=== PATIENT | female | born 1990 | race African-American/Black ===

== ENCOUNTER 2017-09-08 12:24 | Emergency (ER) | payer BC ==
[~2017-09-08] VITALS: Ht 149.9 cm; Wt 62.1 kg
[~2017-09-08 12:24] MED LIST: BUTA1CAP29 PO; PROM118S2 PO
--- NOTE | 2017-09-08 13:26 | PHYS DOC ---
Past History Past Medical History: No Pertinent History Past Surgical History: Tubal ligation Smoking: Cigarettes Additional Smoking Information: Pt states she smokes 4 - 6 cigerettes/day. Alcohol Use: Occasionally Additional Alcohol Information: Pt states she drinks occasionally - 2x/month - but states "I drink a lot when I do drink." Drug Use: None Social History Narrative: Pt states she did street drugs in past but not currently. Adult General Chief Complaint Chief Complaint: SORE THROAT HPI HPI She is a pleasant otherwise healthy 27-year-old female with only history of seasonal allergies who presents with a week long history of sore throat and runny nose. Patient but she was seen by her primary care doctor and used over- the-counter medication to try to treat her nasal congestion. She's noted a last several days increasing swelling and pain within her throat making it difficult to swallow. She has no respiratory problems, no chest pain, no neck swelling, fevers and chills that are subjective but nothing measured. Denies any recent sick contacts, denies any recent travel outside the country antibiotic use. She really denies any change in voice just does not feel any better after the [id number] medication provided by her primary care doctor. Review of Systems Review of Systems Constitutional: Positive for fevers and chills subjectively Eyes: Denies change in visual acuity, redness, or eye pain [] HENT: Positive for nasal congestion and sore throat negative for change in voice Respiratory: Denies cough or shortness of breath [] Cardiovascular: No additional information not addressed in HPI [] GI: Denies abdominal pain, nausea, vomiting, bloody stools or diarrhea [] : Denies dysuria or hematuria [] Musculoskeletal: Denies back pain or joint pain [] Integument: Denies rash or skin lesions [] Neurologic: Denies headache, focal weakness or sensory changes [] Endocrine: Denies polyuria or polydipsia [] All other systems were reviewed and found to be within normal limits, except as documented in this note. Current Medications Current Medications Current Medications Medications (Trade) Dose Ordered Sig/Ulysses Start Time Stop Time Status Last Admin Dose Admin Dexamethasone Sodium Phosphate (Decadron) 10 mg 1X ONCE 09/08/17 13:15 09/08/17 13:16 UNV Ketorolac Tromethamine (Toradol) 60 mg 1X ONCE 4/16/18 13:45 09/08/17 13:46 Penicillin G Benzathine (Bicillin L-A) 1,200,000 unit 1X ONCE 09/08/17 13:15 09/08/17 13:16 UNV Allergies Allergies Allergies Coded Allergies Type Severity Reaction Last Updated Verified bismuth subsalicylate Allergy Severe sob 09/08/17 Yes Physical Exam Physical Exam Of the vital signs on the chart at this time within normal limits Constitutional: Well developed, well nourished, no acute distress, non-toxic appearance. [] HENT: Normocephalic, atraumatic, bilateral external ears normal, oropharynx moist, significant oral exudates with tonsillar hypertrophy noted +2 bilaterally no kissing tonsils no soft palate edema or erythema, nose normal. No facial tenderness to palpation,no stridorous respirations no change was noted [] Eyes: PERRLA, EOMI, conjunctiva normal, no discharge. [] Neck: Normal range of motion, no tenderness, supple, no stridor. Negative anterior lymphadenopathy noted[] Cardiovascular:Heart rate regular rhythm, no murmur [] Lungs & Thorax: Bilateral breath sounds clear to auscultation [] Skin: Warm, dry, no erythema, no rash. [] Neurologic: Alert and oriented X 3, normal motor function, normal sensory function, no focal deficits noted. [] Psychologic: Affect normal, judgement normal, mood normal. [] Current Patient Data Vital Signs Vital Signs Date Time Temp Pulse Resp B/P (MAP) Pulse Ox O2 Delivery O2 Flow Rate FiO2 09/08/17 12:35 97.6 96 16 100 Room Air EKG EKG [] Radiology/Procedures Radiology/Procedures [] Course & Med Decision Making Course & Med Decision Making Pertinent Labs and Imaging studies reviewed. (See chart for details) []Patient is a pleasant 27-year-old female who presents with sore throat. Based on her presentation Centor criteria: The Centor criteria are a widely used and accepted clinical decision tool These criteria are: Tonsillar exudates Tender anterior cervical adenopathy Fever by history Absence of cough The likelihood of having GAS increases with the number of Centor criteria. However, the Centor criteria are most useful in identifying patients for whom neither microbiologic tests nor antimicrobial therapy are necessary. Patients with fewer than three (0 to 2) Centor criteria are unlikely to have GAS and, in general, should not receive either antibiotic treatment or diagnostic testing. She had positive rapid strep test at bedside side treat her empirically with Decadron, Toradol and Bicillin. Patient is not demonstrating any stridor she is not tachycardic she did not look dehydrated she is still tolerating by mouth food and fluids. I will have her follow-up with her primary care doctor in 2 days to ensure that she is improved. discharge: I've spoken with the patient and/or caregivers. I've explained the patient's condition, diagnosis and treatment plan based on information available to me at this time. I've answered the patient's and/or caregivers questions and addressed any concerns. The patient and/or caregivers have a good understanding the patient's diagnosis, condition and treatment plan as can be expected at this point. Vital signs have been stabilized. The patient's condition is stable for discharge from the emergency department. The patient will pursue further outpatient evaluation with her primary care provider or other designated consulting physician as outlined in the discharge instructions. Patient and/or caregivers are agreeable to this plan of care and follow-up instructions have been explained in detail. The patient and/or caregivers have received these instructions in written format and expressed understanding of these discharge instructions. The patient and her caregivers are aware that if any significant change in condition or worsening of symptoms should prompt him to immediately return to this of the closest emergency department. If an emergent department is not readily available I would encourage him to call 911. Vincent Disclaimer Dragon Disclaimer This electronic medical record was generated, in whole or in part, using a voice recognition dictation system. Departure Departure: Referrals: LEXIE BALL MD (PCP) SARAH WHITE MD Sep 08, 2017 13:26
[2017-09-08] MEDS ORDERED: HYDR10SO3 PO (13:29)
[2017-09-08] MEDS: DEXAMETHASONE SOD PHOS 10 MG/ML VIAL IV ONE (13:33)
[2017-09-08] MEDS: PENICILLIN G BENZATHINE LA 1,200,000 UNIT/2 ML DISP.SYRIN. IM ONE (13:35)
[2017-09-08] MEDS: KETOROLAC 60 MG/2 ML VIAL. IM ONE (13:39)
[2017-09-08 14:00] VITALS: BP 127/76
== END 2017-09-08 14:00 | disposition home or self-care (01) ==
LOC: ER 12:24
DX: J02.0 Streptococcal pharyngitis (principal); F17.210 Nicotine dependence, cigarettes, uncomplicated; Z88.8 Allergy status to other drugs, medicaments and biological substances
CPT/HCPCS: 87880; 96372; 96374; 99284; J0561; J1100; J1885

== ENCOUNTER 2018-06-20 18:02 | Emergency (ER) | payer BC ==
[~2018-06-20] VITALS: Ht 149.9 cm; Wt 62.1 kg
[~2018-06-20 18:02] MED LIST changes: +HYDR10SO4 PO; -PROM118S2 PO; +PROM118S5 PO
[2018-06-20 18:05] VITALS: BP 108/70
[2018-06-20] MEDS ORDERED: PENICILLIN G BENZATHINE LA 1,200,000 UNIT/2 ML DISP.SYRIN. IM ONE (18:30)
--- NOTE | 2018-06-20 18:33 | PHYS DOC ---
Past History Past Medical History: No Pertinent History Past Surgical History: Tubal ligation Smoking: Cigarettes Alcohol Use: Occasionally Drug Use: None Adult General Chief Complaint Chief Complaint: SORE THROAT HPI HPI 28-year-old female presents with 3 day history of sore throat. Patient stated his been getting worse the last 3 days. She presents today because it is painful even swallow water. She denied having any difficulty breathing. She has not measured a fever at home. She has unknown sick contacts. She has no other complaints. Review of Systems Review of Systems Constitutional: Denies fever or chills [] Eyes: Denies change in visual acuity, redness, or eye pain [] HENT: Sore throat [] Respiratory: Denies cough or shortness of breath [] Cardiovascular: No additional information not addressed in HPI [] GI: Denies abdominal pain, nausea, vomiting, bloody stools or diarrhea [] : Denies dysuria or hematuria [] Musculoskeletal: Denies back pain or joint pain [] Integument: Denies rash or skin lesions [] Neurologic: Denies headache, focal weakness or sensory changes [] Endocrine: Denies polyuria or polydipsia [] All other systems were reviewed and found to be within normal limits, except as documented in this note. Allergies Allergies Allergies Coded Allergies Type Severity Reaction Last Updated Verified bismuth subsalicylate Allergy Severe sob 06/20/18 Yes Physical Exam Physical Exam Constitutional: Well developed, well nourished, no acute distress, non-toxic appearance. [] HENT: Normocephalic, atraumatic, bilateral external ears normal, oropharynx erythematous, tonsils very swollen and erythematous, nose normal. [] Eyes: PERRLA, EOMI, conjunctiva normal, no discharge. [] Neck: Normal range of motion, no tenderness, supple, no stridor. [] Cardiovascular:Heart rate regular rhythm, no murmur [] Lungs & Thorax: Bilateral breath sounds clear to auscultation [] Abdomen: Bowel sounds normal, soft, no tenderness, no masses, no pulsatile masses. [] Skin: Warm, dry, no erythema, no rash. [] Back: No tenderness, no CVA tenderness. [] Extremities: No tenderness, no cyanosis, no clubbing, ROM intact, no edema. [] Neurologic: Alert and oriented X 3, normal motor function, normal sensory function, no focal deficits noted. [] Psychologic: Affect normal, judgement normal, mood normal. [] Current Patient Data Vital Signs Vital Signs Date Time Temp Pulse Resp B/P (MAP) Pulse Ox O2 Delivery O2 Flow Rate FiO2 06/20/18 18:05 98.2 80 20 99 Room Air EKG EKG [] Radiology/Procedures Radiology/Procedures [] Course & Med Decision Making Course & Med Decision Making Pertinent Labs and Imaging studies reviewed. (See chart for details) Patient's rapid strep is negative (highly suspicious based on her exam. I will treat her with Bicillin IM per patient choice versus oral medication. She is stable for discharge at this time. [] Dragon Disclaimer Dragon Disclaimer This electronic medical record was generated, in whole or in part, using a voice recognition dictation system. Departure Departure: Impression: Primary Impression: Strep pharyngitis Disposition: HOME, SELF-CARE Condition: STABLE Referrals: LEXIE BALL MD (PCP) Patient Instructions: Strep Throat, [id number] SYBIL JOHNSON DO Jun 20, 2018 18:33
[2018-06-20] MEDS ORDERED: FLUC150T PO (18:50)
== END 2018-06-20 18:55 | disposition home or self-care (01) ==
LOC: ER 18:02
DX: J02.0 Streptococcal pharyngitis (principal); B95.5 Unspecified streptococcus as the cause of diseases classified elsewhere; F17.210 Nicotine dependence, cigarettes, uncomplicated; Z88.8 Allergy status to other drugs, medicaments and biological substances
CPT/HCPCS: 87880; 96372; 99283; J0561; 87070